=== PATIENT | female | born 1985 | race Caucasian/White ===

== ENCOUNTER 2022-04-19 00:31 | Emergency (ER) | payer SELFPAY | END 2022-04-19 02:34 | disposition home or self-care (01) | LOC: ERS 00:31 | DX: L03.90 Cellulitis, unspecified (principal); J45.909 Unspecified asthma, uncomplicated; F17.210 Nicotine dependence, cigarettes, uncomplicated; Z79.899 Other long term (current) drug therapy | CPT/HCPCS: 93005 ==